=== PATIENT | male | born 1955 | race Asian ===

== ENCOUNTER → 2018-12-09 | Day surgery (SDC) | payer OTHER ==
[~2018-12-09] MED LIST: ALLOPURINOL300 MG PO; AMLODIPINE BESY10 MG PO; EPINEPHRINE HCL 1:1000 1ML 1 MG/ML AMP ONE; FENOFIBRATE145 MG PO; FENTANYL CITRATE/PF 100MCG/2 ML INJ ONE; FISH OIL PO; INDOMETHACIN50 MG PO; LIDOCAINE HCL 2% LOCAL INJ 5 ML SDV VIAL INJ ONE; METOPROLOL TART50 MG PO; MIDAZOLAM HCL 2 MG/2 ML VIAL ONE; PREDNISONE10 MG PO; PROPOFOL IV EMULSION 10 MG/ML 50 ML VIAL ONE; VALACYCLOVIR500 MG PO; VIT D3 PO
[2018-12-09 19:10] VITALS: BP 126/84
--- NOTE | 2018-12-10 00:48 | Operative Report ---
DATE OF PROCEDURE: 12/09/2018 SURGEON: Arpit Ying MD PROCEDURE: Colonoscopy with polypectomy. REFERRING PHYSICIAN: Dr. Sammi Garcia/Dr. Bernstein. INDICATIONS FOR COLONOSCOPY: Colorectal cancer screening. MEDICATIONS: The patient was done under MAC, please see anesthesiologist's note. PROCEDURE IN DETAIL: With the patient in left lateral decubitus position, the flexible fiberoptic Olympus colonoscope was inserted into the rectum with ease and advanced all the way to the cecum. It was then withdrawn slowly. Mucosa overlying the cecum appeared to be within normal limits. Two polyps were removed per cold snare polypectomy from the ascending colon. The transverse appeared to be within normal limits. One polyp was snared per cold snare polypectomy from the descending colon and additional polyp was removed per cold snare polypectomy from the sigmoid colon. The rectum appeared to be within normal limits. Moderate-sized internal hemorrhoids were noted none of which was actively bleeding. The scope was then straightened out, it was subsequently withdrawn, patient tolerated procedure well. IMPRESSION: 1. Ascending colon polyps x2 snared. 2. Descending colon polyp x1, snared. 3. Sigmoid colon polyp x1, snared. 4. Internal hemorrhoids, none actively bleeding. PLAN: Follow up histology. Initiate high-fiber, low-fat diet. Initiate high-fiber supplement. The patient might benefit from a followup colonoscopy in 3 to 5 years. Arpit Ying MD [facility] [place] /[id number] cc: Sammi Garcia DO
--- OUTSIDE RECORDS SUMMARY | 2018-12-10 14:42 | XMS REPORT ---
Author Author [facility] Address Unknown Phone Unavailable Care Team Providers Care [employer]writer Name Role Phone Unavailable Unavailable Problems This patient has no known problems. Allergies, Adverse Reactions, Alerts This patient has no known allergies or adverse reactions. Medications This patient has no known medications. Encounters Start Date/Time End Date/Time Encounter Type Admission Type Attending [facility] [place] Facility Care Department Encounter ID 2018-11-30 08:48:00 2018-11-30 08:48:00 Emergency E [id number]
--- OUTSIDE RECORDS SUMMARY | 2018-12-10 14:42 | XMS REPORT | Summary of Care ---
Author Author DANDY EDGAR M.D. Unknown Address [place] [facility] Phone Unavailable Care Team Providers Care [employer] Tech Name Role Phone DANDY EDGAR M.D. Unavailable Unavailable ALONDRA MYERS [place], AMAYA MILLER Unavailable Unavailable DANDY EDGAR MD Unavailable Unavailable AMAYA CANTU M.D. 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 * Quantity: 1 Refills: 6 DANDY EDGAR M.D. * Start : 01-Dec-2018 Active 20 ML Bottle Allergies and Adverse Reactions Name Dates Details No Known Drug Allergies (Allergy) Status: Active Past Medical History Name Dates Details History of arthritis (V13.4, Z87.39) Status: Resolved History of hypertension (V12.59, Z86.79) Status: Resolved Procedures Procedure Dates Details History of Back Surgery Completed History of Elbow Surgery Completed Immunization Name Dates Details Immunizations not documented Family History Name Dates Details Family history of Status: Active Family history of kidney disease (V18.69, Z84.1) Status: Active Family history of Parkinson's disease (V17.2, Z82.0) Status: Active Name Dates Details Family history of Status: Active Family history of cerebrovascular accident (CVA) (V17.1, Z82.3) Status: Active Name Dates Details Family history of Status: Active Family history of diabetes mellitus (V18.0, Z83.3) Status: Active Social History Name Dates Details - Status: Name Dates Details Never smoker Vital Signs Date Test Result Details [id number] BP Systolic 141 mm[Hg] Status: BP Diastolic 91 mm[Hg] Status: Height 63 in Status: Weight 159 lb Status: Body Mass Index Calculated 28.17 kg/m2 Status: Body Surface Area Calculated 1.75 m2 Status: Heart Rate 54 /min Status: Results Date Description Value Details Results not documented Plan of Care Name Dates Details Planned Observations Planned Goals not documented Planned Encounters Appointment; MYRTLE ALCANTARA M.D. On: 24-Feb-2019 14:00 Interventions Provided Medication Changes* Fluocinolone Acetonide 0.01 % Otic Oil - Start Plan* 1. Will begin Dermotic for the ear. 2. For the [place] needs to protect the eye . Fu as needed. Instructions Name Dates Details Instructions not documented Encounters Appointment; MYRTLE ALCANTARA M.D. Encounter Diagnosis: Problem not documented On: 27-Feb-2018 14:15 Appointment; DANDY EDGAR M.D. Encounter Diagnosis: Problem not documented On: 02-Jun-2018 13:30 Appointment; DANDY EDGAR M.D. Encounter Diagnosis: Problem not documented On: 01-Dec-2018 14:45
== END | disposition home or self-care (01) ==
LOC: OR 12:50
PROVIDERS: ATTEND Internal Medicine Gastroenterology
DX: Z12.11 Encounter for screening for malignant neoplasm of colon (principal); D12.2 Benign neoplasm of ascending colon; D12.4 Benign neoplasm of descending colon; D12.5 Benign neoplasm of sigmoid colon; K64.8 Other hemorrhoids; I10 Essential (primary) hypertension; E78.5 Hyperlipidemia, unspecified; M10.9 Gout, unspecified; Z01.810 Encounter for preprocedural cardiovascular examination; Z68.27 Body mass index [BMI] 27.0-27.9, adult
CPT/HCPCS: 45385; 93005; J0171; J2001; J2250; J2704